=== PATIENT | female | born 1990 | race African-American/Black ===

== ENCOUNTER 2018-05-14 20:29 | Emergency (ER) | payer SELFPAY ==
[~2018-05-14] VITALS: Ht 152.4 cm; Wt 95.5 kg
[~2018-05-14 20:29] MED LIST: MACROBID100 MG PO; PRENATAL VITAMI1 TA5 PO
== END 2018-05-14 21:07 | disposition left against medical advice (07) ==
LOC: COL.ER 20:29
DX: M25.512 Pain in left shoulder (principal); V43.62XA Car passenger injured in collision with other type car in traffic accident, initial encounter

== ENCOUNTER 2018-05-15 12:29 | Emergency (ER) | payer SELFPAY ==
[~2018-05-15] VITALS: Ht 152.4 cm; Wt 95.5 kg
[2018-05-15 12:36] VITALS: BP 122/79; PULSE 63; TEMP 97.5
== END 2018-05-15 14:44 | disposition home or self-care (01) ==
LOC: COL.ER 12:29
DX: S16.1XXA Strain of muscle, fascia and tendon at neck level, initial encounter (principal); S46.911A Strain of unspecified muscle, fascia and tendon at shoulder and upper arm level, right arm, initial encounter; F17.210 Nicotine dependence, cigarettes, uncomplicated; M62.838 Other muscle spasm; V43.62XA Car passenger injured in collision with other type car in traffic accident, initial encounter